=== PATIENT | male | born 1960 | race Caucasian/White ===

== ENCOUNTER 2016-08-29 20:21 | Inpatient (IN) | payer MEDICARE, MEDICAID ==
[2016-08-29] MEDS ORDERED: ZIPRASIDONE 20 MG VIAL IM PRN (22:08)
[2016-08-29] MEDS ORDERED: MAGNESIUM HYDROXIDE 2,400 MG/10 ML CUP PO PRN (22:08)
[2016-08-29] MEDS ORDERED: LORazepam 2 MG/ML SYRINGE IM PRN (22:13)
[2016-08-29] MEDS: NICOTINE 14MG/24HR PATCH TRANSDERM SCH (22:42)
[2016-08-29] MEDS: traZODone HCL 100 MG TAB PO SCH (22:57)
[2016-08-30] MEDS: ACETAMINOPHEN TAB 325 MG TAB PO PRN ×2 (04:54→20:53)
[2016-08-30] MEDS: LORazepam 1 MG TAB PO PRN ×2 (04:54→20:53)
[2016-08-30] MEDS: traZODone HCL 100 MG TAB PO SCH ×2 (06:25→20:49)
[2016-08-30] MEDS: NICOTINE 14MG/24HR PATCH TRANSDERM SCH ×2 (08:35→08:37)
[2016-08-30] MEDS ORDERED: ZIPRASIDONE 20 MG CAP PO SCH (09:00)
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
[2016-08-30] MEDS: HYDROcodone/APAP 7.5-325MG 1 EACH TAB PO PRN (16:37)
[2016-08-30] MEDS: ZIPRASIDONE 20 MG CAP PO SCH (17:30)
[2016-08-30] MEDS: ALBUTEROL INHALER 60 PUFF/8 GM INHALER INHALATION PRN (18:56)
--- NOTE | 2016-08-30 21:57 | HP ---
HISTORY OF PRESENT ILLNESS: This is a 56-year-old male who presented to the emergency department with worsening depression. Patient current is denying chest pain, shortness of breath, nausea, vomiting, abdominal pain, dizziness, ( ) or blurry vision. REVIEW OF SYSTEMS: All 14 systems reviewed and negative except as above. ALLERGIES: PENICILLIN GIVES HIM A RASH. HOME MEDICATIONS: 1. Zetia 10 mg twice daily. 2. Marijuana 2 g daily. SOCIAL HISTORY: The patient smokes 1 to 1-1/2 packs per day, drinks alcohol occasionally. Denied history of drug abuse, but stated that he smokes medical marijuana for his back pain. PAST MEDICAL HISTORY: Chronic back pain, cervical radiculopathy. PAST SURGICAL HISTORY: Laminectomy of L5-S1 and subsequent in her cervical spine. FAMILY HISTORY: Positive for diabetes in his father, mother, brother and sisters. PHYSICAL EXAMINATION: VITAL SIGNS: Reviewed and stable. LUNGS: Clear to auscultation bilaterally. HEART: S1 and S2. HEENT: Atraumatic, normocephalic. PERRLA. NECK: Supple. No masses. No thyromegaly. ABDOMEN: Soft, nontender. Positive bowel sounds in all 4 quadrants. LOWER EXTREMITIES: No edema. PSYCH: Alert and oriented x3. NEURO: No focal deficit. IMAGING AND LABS: Reviewed. ASSESSMENT AND PLAN: 1. Acute depression with anxiety. Medications per your recommendation. 2. Chronic back pain and chronic neck pain. Patient said that when he is off medical marijuana, he is to be on Vicodin or equivalent. I would like to start the patient on [place] 7.5 mg twice daily as needed. 3. Tobacco dependency. The patient counseled regarding smoking cessation and need for him to quit. 4. Bipolar disorder per your recommendation.
[2016-08-31] MEDS: HYDROcodone/APAP 7.5-325MG 1 EACH TAB PO PRN ×2 (05:00→21:07)
[2016-08-31] MEDS: ZIPRASIDONE 20 MG CAP PO SCH ×2 (07:54→17:49)
[2016-08-31] MEDS: LORazepam 1 MG TAB PO PRN ×2 (07:55→16:27)
[2016-08-31] MEDS: NICOTINE 14MG/24HR PATCH TRANSDERM SCH (08:04)
[2016-08-31 09:31] LABS: Basophils % (A) 1 %; CH 32.9; CHCM 33.3; Eosinophils # (A) 0.2 k/uL (0-0.7); Eosinophils % (A) 2 %; HCT 44.4 % (39.0-53.0); HDW 2.31; HGB 14.4 gm/dL (13.0-17.5); Luc # (Auto) 0.13; Luc % (Auto) 2; Lymphocytes # (A) 1.5 k/uL (1.0-4.8); Lymphocytes % (A) 21 %; MCH 32.1 pg (25.0-35.0); MCHC 32.3 g/dL (31.0-37.0); MCV 99.3 fL (80.0-100.0); Mean Platelet Volume 9.9; Monocytes # (A) 0.4 k/uL (0-1.0); Monocytes % (A) 6 %; Neutrophils # (A) 4.9 k/uL (1.3-7.7); Neutrophils % (A) 68 %; RBC 4.48 m/uL (4.30-5.90); RDW 12.4 % (11.5-15.5); WBC 7.2 k/uL (3.8-10.6); WBC (Perox) 7.67
[2016-08-31 09:51] LABS: ALT 53 U/L (21-72); AST 40 U/L (17-59); Alkaline Phosphatase 83 U/L (38-126); Anion Gap 11 mmol/L; Blood Urea Nitrogen 12 mg/dL (9-20); Calcium 9.1 mg/dL (8.4-10.2); Carbon Dioxide 26 mmol/L (22-30); Chloride 106 mmol/L (98-107); Glucose 127 mg/dL (74-99); Non-African American GFR(MDRD) >60 (>60 ml/min/1.73 sqM); Potassium 4.2 mmol/L (3.5-5.1); Sodium 143 mmol/L (137-145); Total Bilirubin 0.3 mg/dL (0.2-1.3); Total Protein 6.6 g/dL (6.3-8.2)
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
[2016-08-31] MEDS: ALBUTEROL INHALER 60 PUFF/8 GM INHALER INHALATION PRN ×3 (13:10→21:22)
[2016-08-31] MEDS: BENZTROPINE MESYLATE 1 MG TAB PO PRN (15:37)
[2016-08-31] MEDS: ACETAMINOPHEN TAB 325 MG TAB PO PRN (16:27)
[2016-09-01] MEDS: LORazepam 1 MG TAB PO PRN ×2 (07:07→23:35)
[2016-09-01] MEDS: NICOTINE 14MG/24HR PATCH TRANSDERM SCH (08:51)
[2016-09-01] MEDS: ZIPRASIDONE 20 MG CAP PO SCH (08:51)
[2016-09-01] MEDS: ALBUTEROL INHALER 60 PUFF/8 GM INHALER INHALATION PRN ×3 (09:36→19:39)
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
[2016-09-01] MEDS: PALIPERIDONE 3 MG TAB.ER.24 PO SCH (12:26)
[2016-09-01] MEDS: HYDROcodone/APAP 7.5-325MG 1 EACH TAB PO PRN ×2 (14:55→21:01)
[2016-09-01] MEDS: ACETAMINOPHEN TAB 325 MG TAB PO PRN ×2 (17:55→23:35)
[2016-09-01] MEDS: BENZTROPINE MESYLATE 1 MG TAB PO PRN (18:54)
[2016-09-01] MEDS ORDERED: ZIPRASIDONE 20 MG CAP PO SCH (21:00)
[2016-09-02] MEDS: ALBUTEROL INHALER 60 PUFF/8 GM INHALER INHALATION PRN ×3 (08:49→17:12)
[2016-09-02] MEDS: NICOTINE 14MG/24HR PATCH TRANSDERM SCH (09:14)
[2016-09-02] MEDS: PALIPERIDONE 3 MG TAB.ER.24 PO SCH (09:14)
[2016-09-02] MEDS: HYDROcodone/APAP 7.5-325MG 1 EACH TAB PO PRN (11:30)
[2016-09-02] MEDS: LORazepam 1 MG TAB PO PRN (11:30)
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
[2016-09-02] MEDS: ACETAMINOPHEN TAB 325 MG TAB PO PRN (22:33)
[2016-09-03] MEDS: HYDROcodone/APAP 7.5-325MG 1 EACH TAB PO PRN ×3 (01:28→21:49)
[2016-09-03] MEDS: LORazepam 1 MG TAB PO PRN ×2 (04:31→21:49)
[2016-09-03] MEDS: NICOTINE 14MG/24HR PATCH TRANSDERM SCH (09:15)
[2016-09-03] MEDS: PALIPERIDONE 3 MG TAB.ER.24 PO SCH (09:16)
[2016-09-03] MEDS: ACETAMINOPHEN TAB 325 MG TAB PO PRN ×2 (09:28→14:42)
[2016-09-03] MEDS: ALBUTEROL INHALER 60 PUFF/8 GM INHALER INHALATION PRN ×3 (09:31→21:21)
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
[2016-09-04] MEDS: BENZTROPINE MESYLATE 1 MG TAB PO PRN (03:59)
[2016-09-04] MEDS: ACETAMINOPHEN TAB 325 MG TAB PO PRN (06:26)
[2016-09-04] MEDS: NICOTINE 14MG/24HR PATCH TRANSDERM SCH (09:09)
[2016-09-04] MEDS: HYDROcodone/APAP 7.5-325MG 1 EACH TAB PO PRN ×2 (09:09→20:53)
[2016-09-04] MEDS: PALIPERIDONE 3 MG TAB.ER.24 PO SCH (09:09)
[2016-09-04] MEDS: ALBUTEROL INHALER 60 PUFF/8 GM INHALER INHALATION PRN ×4 (09:23→21:19)
--- NOTE | 2016-09-04 15:58 | P.PN ---
Progress Note - Text CLINICAL PROBLEMS: He is a 56-year-old male who has a well- established diagnosis of bipolar disorder. He presented to the unit involuntarily with signs and symptoms consistent with janiya. 24 HOUR EVENTS: He received 1 mg of lorazepam at 2149 yesterday for insomnia and restlessness. EXAMINATION: He presented as a casually groomed elderly male wearing multiple layers of clothing. He was pleasant on approach and attended to the interview. He showed no abnormality of psychomotor activity. His gait was normal. He was hyperverbal and demonstrated flight of ideas and clang associations. His affect was elevated but he was not irritable. He denied suicidal ideation or wishes. He denied ideas of reference. He remains angry at his family and expressed a belief that his ex-, son and nmtbwchf-zj-mut are conspiring to steal his Social Security disability and his food stamps. He believes that his Social Security disability payments and food stamps are the reason they want him in the hospital. His thinking was concrete and associations were not coherent or logical. He denied hallucinations and did not appear to be responding to internal stimuli. PERTINENT DATA: He has been compliant with medication and is shown no behavioral dyscontrol. ASSESSMENT: He continues show symptoms of janiya but is much less irritable. PLAN: Increase paliperidone 6 mg by mouth daily, Continue Cogentin 1 mg by mouth twice a day and ziprasidone 20 mg IM twice a day and/or increase Pamelor 1 mg by mouth/IM every 8 hours when necessary for agitation acute agitation. Continue participation in therapeutic groups and activities, evaluate clinical status response to treatment on a daily basis.
[2016-09-05] MEDS: ACETAMINOPHEN TAB 325 MG TAB PO PRN ×2 (06:57→16:06)
[2016-09-05] MEDS: ALBUTEROL INHALER 60 PUFF/8 GM INHALER INHALATION PRN ×4 (08:57→20:46)
[2016-09-05] MEDS: HYDROcodone/APAP 7.5-325MG 1 EACH TAB PO PRN ×2 (09:28→17:10)
[2016-09-05] MEDS: NICOTINE 14MG/24HR PATCH TRANSDERM SCH (09:28)
[2016-09-05] MEDS: PALIPERIDONE 6 MG TAB.ER.24 PO SCH (09:28)
--- NOTE | 2016-09-05 14:12 | P.PN ---
Progress Note - Text CLINICAL PROBLEMS: He was without complaint or concern. He denied side effects to the increased dose of Invega. Therapy staff reported that he is less hyperverbal and less restless during therapeutic groups and activities. 24 HOUR EVENTS: He has participated in therapeutic groups and activities. He posed no management problem and displayed no episodes of behavioral dyscontrol. EXAMINATION: He presented as casually groomed elderly male with long hair and earrings. He was pleasant on approach and maintained eye contact. He appeared to attend to the interview. He had a depressed facial expression. He showed no abnormality of psychomotor activity. Speech was spontaneous with normal rate, rhythm and volume. His speech was not pressured and he displayed no flight of ideas. His affect was depressed but stable and appropriate. He denied suicidal ideation or wishes. He denied ideas of reference and did not express paranoid ideation. His thinking was concrete and associations were coherent and logical. He denied hallucinations did not appear to be responding to internal stimuli. PERTINENT DATA: He is been compliant with prescribed medications. ASSESSMENT: He is much less agitated, labile and angry. He showed a moderate response to treatment and no side effects to the increased dose of the Invega. PLAN: Continue Invega 6 mg by mouth daily and continued discussion to position to long-acting injectable, encourage continued participation in therapeutic groups and activities, evaluate clinical status response to treatment on a daily basis.
[2016-09-05 21:14] LABS: Appearance,Urine Clear (Clear); Bilirubin,Urine Negative (Negative); Glucose,Urine (UA) Negative (Negative); Ketones,Urine Negative (Negative); Leukocyte Esterase,Urine Negative (Negative); Mucus,Urine Rare /hpf; Nitrite,Urine Negative (Negative); Particle Count 1194; Protein,Urine Negative (Negative); RBC,Urine 7 /hpf (0-5); Specific Gravity,Urine 1.019 (1.001-1.035); Squamous Epithelial Cell,Urine <1 /hpf (0-4); UA Billing (MACRO vs. MICRO) MICRO; Urobilinogen,Urine <2.0 mg/dL (<2.0); WBC,Urine 1 /hpf (0-5)
[2016-09-06] MEDS: HYDROcodone/APAP 7.5-325MG 1 EACH TAB PO PRN ×4 (00:39→21:01)
[2016-09-06] MEDS: PALIPERIDONE 6 MG TAB.ER.24 PO SCH (09:01)
[2016-09-06] MEDS: NICOTINE 14MG/24HR PATCH TRANSDERM SCH (09:08)
[2016-09-06] MEDS: ALBUTEROL INHALER 60 PUFF/8 GM INHALER INHALATION PRN ×3 (09:23→21:36)
--- NOTE | 2016-09-06 15:35 | P.PN ---
Progress Note - Text CLINICAL PROBLEMS: He is a 56-year-old male admitted to the psychiatric unit involuntarily (on an ongoing treatment order) with recurrence of a manic psychosis. He is complaining of back pain and requested a prescription of a "stronger" pain medicine than Narco. He stated that he smokes marijuana home to control the pain and "unfortunately" does not have access to marijuana presently. I explained that Narco is the only opiate pain medication is available on the psychiatric unit. He declined my offer for a lidocaine patch. 24 HOUR EVENTS: According to nursing reports she did not sleep last night. The therapist report that his he is much less labile and talkative than on admission but appears depressed. EXAMINATION: He presented as a somewhat disheveled appearing elderly male who was pleasant on approach. He maintained eye contact and attended the interview. Other than multiple tattoos he had no distinguishing features. He had a blunted and depressed facial expression. He was alert and oriented to person, place and time. He did not show abnormality of psychomotor activity. He had a slow but steady gait. His speech was spontaneous with normal rate, rhythm and volume. His affect was depressed but not inappropriate or intense. He denied suicidal ideation or wishes. He denied homicidal ideation. He denied depressive cognitions such as hopelessness, helplessness or worthlessness. He denied obsessive about his ex-, his son and his daughter- in-law. He denied ideas of reference and did not express paranoid ideation. His thinking was concrete but his associations are coherent and logical. He denied hallucinations and did not appear to be responding to internal stimuli PERTINENT DATA: He again declined my recommendation to begin Invega Sustenna. ASSESSMENT: He is much less agitated, irritable and intrusive than on admission. He is not hyperverbal or demonstrating flight of ideas. He appears somewhat depressed but is denying depressive cognitions. PLAN: Continue Invega 6 mg per day, continue to discuss transition to Invega Sustenna, social work will continue to try to arrange a family meeting, continue participation in therapeutic groups and activities, evaluate clinical status response to treatment daily basis.
[2016-09-07] MEDS: LORazepam 1 MG TAB PO PRN (00:02)
[2016-09-07] MEDS: HYDROcodone/APAP 7.5-325MG 1 EACH TAB PO PRN ×3 (07:56→20:06)
[2016-09-07] MEDS: NICOTINE 14MG/24HR PATCH TRANSDERM SCH (07:57)
[2016-09-07] MEDS: PALIPERIDONE 6 MG TAB.ER.24 PO SCH (07:57)
[2016-09-07] MEDS: ALBUTEROL INHALER 60 PUFF/8 GM INHALER INHALATION PRN ×4 (09:59→21:33)
--- NOTE | 2016-09-07 17:02 | P.PN ---
Progress Note - Text CLINICAL PROBLEMS: He is an elderly man who has history of bipolar disorder and noncompliance with medication. He presented to unit with signs and symptoms of acute manic episode. He approached me several times about discharge. He alleged that he is a small dog at home and does not have anyone to assist in the animals care. He became angry when I suggested that we contact his son or [id number]. We discuss transitioning to Invega Sustenna. He was at first reluctant didn't agreed stating that he would take the "shots" until May 2017 when his " court order expires." He refused to restart lithium. 24 HOUR EVENTS: He slept 3 hours last night. He has been compliant with prescribed psychotropic medications. He is posed no management problem and demonstrated no behavioral dyscontrol. EXAMINATION: He presented as a somewhat disheveled appearing 56-year-old man with long hair and earrings. He was pleasant on approach and maintained eye contact. He was distractible. He had a labile facial expression. He was able to sit during the interview. He displayed no abnormal movements. He was hyperverbal. His affect was labile; at times irritable, elevated or depressed. He cried intermittently during the interview. He denied suicidal ideation or wishes. He denied homicidal ideation towards his son and daughter-in- law. He denied depressive cognitions such as hopelessness, helplessness and worthlessness. He denied ideas reference and did not express paranoid ideation. His thinking is concrete and his associations are not coherent or logical. He demonstrated flight of ideas and tangentiality. He did not demonstrate clang associations or neologisms. He denied hallucinations and did not appear to responding to internal stimuli. PERTINENT DATA: He is attending therapeutic groups and activities but the therapist describes him as disorganized, ruminative and restless. licensing worker has been unable to reach his family. ASSESSMENT: He is shown moderate improvement since admission with a decrease in overall level of hyperactivity. He is less irritable but has continued signs and symptoms of janiya. PLAN: Continue paliperidone 6 mg daily. Begin the standard Invega Sustenna titration on 09/08/2016 then discontinue oral paliperidon. Continue participation in therapeutic groups and activities. Evaluate clinical status and response to treatment on a daily basis.
[2016-09-08] MEDS: HYDROcodone/APAP 7.5-325MG 1 EACH TAB PO PRN ×3 (06:49→20:27)
[2016-09-08] MEDS: ALBUTEROL INHALER 60 PUFF/8 GM INHALER INHALATION PRN ×2 (08:00→11:52)
[2016-09-08] MEDS: PALIPERIDONE 6 MG TAB.ER.24 PO SCH (09:50)
[2016-09-08] MEDS: NICOTINE 14MG/24HR PATCH TRANSDERM SCH (09:50)
--- NOTE | 2016-09-08 14:11 | P.PN ---
Progress Note - Text CLINICAL PROBLEMS: He is an elderly man who has history of bipolar disorder and noncompliance with medication. He presented to unit with signs and symptoms of acute manic episode. He is worried about his dog. He allegedly left it at his apartment unsupervised with a large part of a thought food. He is opposed to us contacting his son or [id number] to care for the animal. However he called his landlady and learned that landlady during had been caring for the animal. He remains preoccupied on discharge and is on the impression that he'll be discharged this coming Sunday. I told him that he may be discharged next week but definitely on Sunday. 24 HOUR EVENTS: He slept 4 hours last night. He has been compliant with prescribed psychotropic medications. He is posed no management problem and demonstrated no behavioral dyscontrol. EXAMINATION: He presented as a restless 56-year-old man with long hair and earrings. Akathetic movements were most pronounced when he was standing still. He was pleasant on approach and maintained eye contact. He was distractible. He had a labile facial expression. He was able to sit during the interview. He displayed no abnormal movements. He was hyperverbal. His affect was not labile. He denied suicidal ideation or wishes. He denied homicidal ideation towards his son and [id number]. He denied depressive cognitions such as hopelessness, helplessness and worthlessness. He denied ideas reference and did not express paranoid ideation. His thinking is concrete and his associations are not coherent or logical. He demonstrated flight of ideas and tangentiality. He did not demonstrate clang associations or neologisms. He denied hallucinations and did not appear to responding to internal stimuli. PERTINENT DATA: He is attending therapeutic groups and activities but the therapist describes him as disorganized, ruminative and restless. head loft worker has been unable to reach his family. ASSESSMENT: He is shown moderate improvement since admission with a decrease in overall level of hyperactivity and gradual improvement sleep. He is developed akathisia with the 6 mg dose of paliperidone PLAN: Decrease the paliperidone to 3 mg daily. Hold Invega Sustenna until the akathisia diminishes. Continue participation in therapeutic groups and activities. Evaluate clinical status and response to treatment on a daily basis
[2016-09-08] MEDS: ACETAMINOPHEN TAB 325 MG TAB PO PRN (17:13)
[2016-09-09] MEDS: HYDROcodone/APAP 7.5-325MG 1 EACH TAB PO PRN ×3 (05:23→19:21)
[2016-09-09] MEDS: PALIPERIDONE 3 MG TAB.ER.24 PO SCH (09:12)
[2016-09-09] MEDS: NICOTINE 14MG/24HR PATCH TRANSDERM SCH (09:12)
--- NOTE | 2016-09-09 10:31 | P.PN ---
Progress Note - Text Interval history: The patient is found in the hallway he follows me to an interview room. He is being seen today in coverage for Dr. Avery. The patient presents with a history of bipolar disorder and is obviously manic with symptoms of psychosis. The patient lacks insight into the symptoms. It appears he is being currently managed with invega and the dosage has just been reduced from 6 mg to 3 mg. This was due to concerns related to akathisia. The patient states that he is being held here for no reason and wonders why "you are doing this to me". Numerous times he states he does not have bipolar disorder and does not require any psychiatric medication. Mental status exam: The patient is an alert male. He has long hair he is wearing an earring. He appears to be wearing a women's blouse and his own pants. He has a disheveled appearance. Speech is pressured he is hyperverbal, thought process is tangential he demonstrates loose associations. He appears to have a grandiose thought content and expresses feelings of paranoia and persecution from the clinical staff. Numerous times he challenges me for diagnosing him with bipolar disorder. Insight and judgment are impaired. He demonstrates no verbal or physical aggressiveness. He is able to remain seated in the chair during the interview. Plan: The patient will be continued on the invega as written. Based on today's presentation I would consider adding another mood stabilizer possible. He does state that he does not wish to be on lithium or Depakote again we will address other options. I believe the patient is on a treatment order. We will monitor him for safety and encourage his participation in the milieu. Vital signs reviewed.
[2016-09-09] MEDS: ALBUTEROL INHALER 60 PUFF/8 GM INHALER INHALATION PRN ×2 (15:25→21:14)
[2016-09-10] MEDS: LORazepam 1 MG TAB PO PRN ×3 (00:01→23:15)
[2016-09-10] MEDS: NICOTINE 14MG/24HR PATCH TRANSDERM SCH (08:39)
[2016-09-10] MEDS: PALIPERIDONE 3 MG TAB.ER.24 PO SCH (08:39)
[2016-09-10] MEDS: HYDROcodone/APAP 7.5-325MG 1 EACH TAB PO PRN ×3 (08:41→23:15)
[2016-09-10] MEDS: BENZTROPINE MESYLATE 1 MG TAB PO PRN ×2 (08:44→23:15)
[2016-09-10] MEDS: ALBUTEROL INHALER 60 PUFF/8 GM INHALER INHALATION PRN ×3 (09:26→20:41)
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
[2016-09-10] MEDS: ACETAMINOPHEN TAB 325 MG TAB PO PRN (13:51)
[2016-09-11] MEDS: HYDROcodone/APAP 7.5-325MG 1 EACH TAB PO PRN ×3 (07:50→20:08)
[2016-09-11] MEDS: NICOTINE 14MG/24HR PATCH TRANSDERM SCH (09:25)
[2016-09-11] MEDS: PALIPERIDONE 3 MG TAB.ER.24 PO SCH (09:25)
[2016-09-11] MEDS ORDERED: PALIPERIDONE IM 234 MG/1.5 ML SYG IM STA (11:12)
[2016-09-11] MEDS ORDERED: PALIPERIDONE IM 156 MG/ML SYG IM STA (11:18)
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
[2016-09-11] MEDS: BENZTROPINE MESYLATE 1 MG TAB PO PRN ×2 (14:37→20:08)
[2016-09-11] MEDS: ACETAMINOPHEN TAB 325 MG TAB PO PRN (16:16)
[2016-09-11] MEDS: ALBUTEROL INHALER 60 PUFF/8 GM INHALER INHALATION PRN (20:12)
[2016-09-11] MEDS: MAG HYDROX/AL HYDROX/SIMETH 30 ML CUP PO PRN (22:07)
[2016-09-11] MEDS: LORazepam 1 MG TAB PO PRN (23:59)
[2016-09-12] MEDS: HYDROcodone/APAP 7.5-325MG 1 EACH TAB PO PRN ×4 (01:54→21:15)
[2016-09-12] MEDS: NICOTINE 14MG/24HR PATCH TRANSDERM SCH (08:49)
[2016-09-12] MEDS: PALIPERIDONE 3 MG TAB.ER.24 PO SCH (08:49)
[2016-09-12] MEDS: ALBUTEROL INHALER 60 PUFF/8 GM INHALER INHALATION PRN ×3 (09:22→21:00)
[2016-09-12] MEDS: BENZTROPINE MESYLATE 1 MG TAB PO PRN (10:12)
[2016-09-12] MEDS: MAG HYDROX/AL HYDROX/SIMETH 30 ML CUP PO PRN ×3 (11:12→21:59)
[2016-09-12 11:14] VITALS: BMI 27.3
--- NOTE | 2016-09-12 11:55 | P.PN ---
Progress Note - Text SUBJECTIVE: He stated that he would like to arrange a family meeting with his son and [id number]. He stated that they have reconciled and is no longer angry at them. He denied side effects to the Abilify Sustenna injection but nursing reported that he appears restless and "akathetic". OBJECTIVE: He presented elderly male with long hair and earrings who is dressed in a similar manner to yesterday; wearing a short-sleeved shirt over a longsleeve and shorts over long pants. He maintained eye contact and appeared to attend to interview. He had a blunted but bright facial expression. He appeared restless but not agitated. His speech was spontaneous with slight increase in rate but normal volume and rhythm. His affect was labile but appropriate. He denied suicidal ideation or wishes he denied depressive cognitions such as hopelessness, helplessness and worthlessness. He did not express ideas reference or paranoid ideation. His thinking was concrete and associations appeared coherent and logical. He denied hallucinations and did not appear to responding to internal stimuli. ASSESSMENT: He has some signs and symptoms of hypomania but is much improved from admission. He appears to be having some akathisia from the 156 mg dose of Abilify Sustenna PLAN: Continue oral Abilify until the next systemic injection in 7 days. well service derrick worker to arrange a family meeting where we can obtain some information about his baseline functioning. Change Cogentin dosing from 1 mg twice a day when necessary to regular dosing. Continue participation in therapeutic groups and activities. Evaluate clinical status and response to treatment daily basis. If his family reports that he is at or near his baseline functioning and sconsider discharge prior to the next Sustenna injection.
[2016-09-12] MEDS: BENZTROPINE MESYLATE 1 MG TAB PO SCH (21:14)
[2016-09-12] MEDS: LORazepam 1 MG TAB PO PRN (23:23)
[2016-09-13 06:32] VITALS: BP 123/80; PULSE 91; RESP 20; TEMP 98
[2016-09-13] MEDS: PALIPERIDONE 3 MG TAB.ER.24 PO SCH (09:21)
[2016-09-13] MEDS: BENZTROPINE MESYLATE 1 MG TAB PO SCH (09:21)
[2016-09-13] MEDS: NICOTINE 14MG/24HR PATCH TRANSDERM SCH (09:21)
[2016-09-13] MEDS: HYDROcodone/APAP 7.5-325MG 1 EACH TAB PO PRN (09:23)
[2016-09-13] MEDS: ALBUTEROL INHALER 60 PUFF/8 GM INHALER INHALATION PRN (10:50)
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
== END 2016-09-13 16:37 | disposition home or self-care (01) | DRG 885 ==
LOC: 3MHU 21:24
PROVIDERS: ADMIT Psychiatry & Neurology Psychiatry; ATTEND Psychiatry & Neurology Psychiatry
DX: F31.10 Bipolar disorder, current episode manic without psychotic features, unspecified (principal); G25.71 Drug induced akathisia; F41.9 Anxiety disorder, unspecified; F12.20 Cannabis dependence, uncomplicated; B19.20 Unspecified viral hepatitis C without hepatic coma; F43.10 Post-traumatic stress disorder, unspecified; F90.2 Attention-deficit hyperactivity disorder, combined type; G89.29 Other chronic pain; G47.00 Insomnia, unspecified; M54.12 Radiculopathy, cervical region; M54.9 Dorsalgia, unspecified; F17.210 Nicotine dependence, cigarettes, uncomplicated; F10.10 Alcohol abuse, uncomplicated; Z91.14 Patient's other noncompliance with medication regimen; Z79.899 Other long term (current) drug therapy
CPT/HCPCS: 80053; 80178; 80306; 81001; 84443; 85025; 93005; 94640

== ENCOUNTER 2018-04-10 09:04 | Inpatient (IN) | payer MEDICARE, MEDICAID ==
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
[2018-04-10 10:03] LABS: Amphetamine Screen,Urine Not Detected (NotDetected); Barbiturate Screen,Urine Not Detected (NotDetected); Benzodiazepines Screen,Urine Not Detected (NotDetected); Cocaine Screen,Urine Not Detected (NotDetected); Methadone Screen, Urine Not Detected (NotDetected); Opiate Screen,Urine Not Detected (NotDetected); Oxycodone Screen, Urine Not Detected (NotDetected); Phencyclidine Screen,Urine Not Detected (NotDetected); Tricyclic Antidepressant,Urine Not Detected (NotDetected); Urn Cannabinoid Scrn Detected (NotDetected)
[2018-04-10] MEDS ORDERED: LORazepam 1 MG TAB PO STA (13:27)
[2018-04-10] MEDS ORDERED: MAGNESIUM HYDROXIDE 2,400 MG/10 ML CUP PO PRN (13:59)
[2018-04-10] MEDS ORDERED: MAG HYDROX/AL HYDROX/SIMETH 30 ML CUP PO PRN (13:59)
[2018-04-10] MEDS ORDERED: ZIPRASIDONE 20 MG VIAL IM PRN (13:59)
[2018-04-10] MEDS ORDERED: LORazepam 2 MG/ML INJ IM PRN (14:08)
[2018-04-10] MEDS: ACETAMINOPHEN TAB 325 MG TAB PO PRN (15:05)
--- NOTE | 2018-04-10 15:47 | P.MDCNMH ---
History of Present Illness Chief Complaint: Worsening bipolar and psychotic features 58-year-old male who has past medical history of bipolar disorder with previous admissions to mental health unit who was admitted here due to the worsening symptoms of bipolar disorder restlessness impulsiveness stating to be hearing voices and wanting to purge himself and the pupil in her surrounding. Patient is a very poor historian. Quite difficulties obtaining straightforward thought process and currently her answers from him. His digressive he skips from topic to topic. Generally he states that he does not have much of any medical problems. He does not take any medications except for his bipolar disorder he denied any particular medical conditions like lung problems car problems. Heart attacks strokes or diabetes or kidney problems. Currently he denies any headache vision changes shortness of breath cough chest pain palpitations abdominal pain nausea vomiting denies any weight loss appetite close burning with urination or changes in his stool denies any musculoskeletal pain or any other focal pain or discomfort. Review of Systems REVIEW OF SYSTEMS: CONSTITUTIONAL: No fever or chills HEENT: No changes in vision or voice CARDIOVASCULAR: no chest pain or abnormal heart beats, or any swelling in ankles or feet. RESPIRATORY: No wheezing or coughing. GASTROINTESTINAL: No abdominal pain, no nausea no vomiting no constipation or diarrhea GENITOURINARY: no any urinary urgency, frequency or burning, and there has been no blood in her urine. no flank pain. MUSCULOSKELETAL: notes full range of motion of all her joints without pain or swelling. NEUROLOGICAL: , no headache. no vision changes, or fainting. No numbness or tingling. Skin: Multiple tattoos no rash no cyanosis appear Psychiatric: Awake and alert not visit to establish level of orientation due to the aggressive answers, appears agitated and the moments and anxious Past Medical History Past Medical History: No Reported History History of Any Multi-Drug Resistant Organisms: None Reported Past Surgical History: Orthopedic Surgery Additional Past Surgical History / Comment(s): 2004 broken neck, 2006 back fusion, 2004 acl repair Past Anesthesia/Blood Transfusion Reactions: No Reported Reaction Smoking Status: Current every day smoker Medications and Allergies Home Medications Medication Instructions Recorded Confirmed Type Mirtazapine [Remeron] 15 mg PO HS 04/10/18 04/10/18 History OXcarbazepine [Trileptal] 300 mg PO BID 04/10/18 04/10/18 History Paliperidone [Invega] 6 mg PO DAILY 04/10/18 04/10/18 History Allergies Allergy/AdvReac Type Severity Reaction Status Date / Time Penicillins Allergy Unknown Verified 04/10/18 13:28 Childhood Physical Exam Vitals: Vital Signs Temp Pulse Pulse Resp BP BP Pulse Ox 04/10/18 15:00 97.8 F 77 20 130/92 04/10/18 13:32 98.5 F 75 18 136/90 97 04/10/18 09:07 98.4 F 84 18 131/85 97 Intake and Output 04/10/18 04/10/18 04/10/18 06:59 14:59 22:59 Other: Weight 86.183 kg 74.9 kg Vital Signs: I have reviewed the vital signs. GENERAL: Well-nourished, Well-developed , no apparent distress, cooperative Eyes: PERRL, extraoculry movements intact, clear conjunctiva Head: : Atraumatic external nose and ears, oropharyngeal mucosa is moist without lesions or exudates Neck: Symmetric, trachea midline, No thyromegaly, no masses or neck vain pulsation, no neck rigidity CVS: +S1/S2, No murmurs or gallops. Peripheral pulses 2+ and equal in all extremities. RESP: Unlabored respiratory effort. Clear to auscultation bilaterally. Abdomen: Bowel sounds present in all 4 quadrants, Soft to palpation, Nontender/ Nondistended, No hepatosplenomegaly, no hernias or masses, no CVA tnderness Musculoskeletal: Extremities w/o deformity, No cyanosis or clubbing, no joint swelling Skin: Warm, Dry. No rashes or lesions Neuro: stereoptician II-XII grossly intact, motor strenght 5/5 i upper and lower extremities, no clonus, patellar DTRs 2+ and sympetrical Psych: Awake, Alert, & Oriented (AAO) x3 Appropriate mood and affect Cranial Nerve Examination - Cranial Nerves Cranial Nerve I- Olfactory: Intact Cranial Nerve II- Optic: Intact Cranial Nerve III- Oculomotor: Intact Cranial Nerve IV- Trochlear: Intact Cranial Nerve V- Trigeminal: Intact Cranial Nerve - Abducens: Intact Cranial Nerve VII- Facial: Intact Cranial Nerve VIII- Auditory: Intact Cranial Nerve IX- Glossopharyngeal: Intact Cranial Nerve X- Vagus: Intact Cranial Nerve XI- Accessory: Intact Cranial Nerve XII- Hypoglossal: Intact Results Labs: Abnormal Lab Results - Last 24 Hours (Table) 04/10/18 Range/Units 09:29 U Marijuana (THC) Screen Detected H (NotDetected) Assessment and Plan Plan: 1. Bipolar disorder With decompensation Psychiatry following Admission mental health unit Usual blood work with CBC CMP TSH A1c and lipid panel Denies drinking Denies smoking Reports smoking marijuana Medicine we'll continue to follow
[2018-04-10] MEDS ORDERED: MIRTAZAPINE 15 MG TAB PO SCH (21:00)
[2018-04-10] MEDS: OXcarbazepine 300 MG TAB PO SCH (21:36)
[2018-04-11] MEDS: LORazepam 1 MG TAB PO PRN ×2 (04:45→21:54)
[2018-04-11 07:59] LABS: Basophils # (A) 0.1 k/uL (0-0.2); Basophils % (A) 1 %; Eosinophils # (A) 0.3 k/uL (0-0.7); Eosinophils % (A) 4 %; HCT 41.6 % (39.0-53.0); HGB 13.3 gm/dL (13.0-17.5); Lymphocytes # (A) 1.7 k/uL (1.0-4.8); Lymphocytes % (A) 22 %; MCH 30.8 pg (25.0-35.0); MCV 96.1 fL (80.0-100.0); Mean Platelet Volume 9.6; Monocytes # (A) 0.6 k/uL (0-1.0); Monocytes % (A) 7 %; Neutrophils # (A) 4.9 k/uL (1.3-7.7); Neutrophils % (A) 65 %; Platelet Count 110 k/uL (150-450); RBC 4.32 m/uL (4.30-5.90); RDW 12.5 % (11.5-15.5); WBC 7.6 k/uL (3.8-10.6)
[2018-04-11 08:07] LABS: ALT 34 U/L (21-72); AST 39 U/L (17-59); Albumin 3.6 g/dL (3.5-5.0); Alkaline Phosphatase 76 U/L (38-126); Anion Gap 3 mmol/L; Bilirubin, Delta 0.3 mg/dL (0.0-0.2); Bilirubin,Unconjugated 0.1 mg/dL (0.0-1.1); Blood Urea Nitrogen 15 mg/dL (9-20); Calcium 8.9 mg/dL (8.4-10.2); Carbon Dioxide 29 mmol/L (22-30); Chloride 108 mmol/L (98-107); Cholesterol 121 mg/dL (<200); Glucose 89 mg/dL (74-99); HDL Cholesterol 43 mg/dL (40-60); LDL Cholesterol,Calculated 68 mg/dL (0-99); Potassium 4.2 mmol/L (3.5-5.1); Sodium 140 mmol/L (137-145); Total Bilirubin 0.4 mg/dL (0.2-1.3); Total Protein 6.1 g/dL (6.3-8.2); Triglycerides 51 mg/dL (<150)
[2018-04-11] MEDS: NICOTINE 14MG/24HR PATCH TRANSDERM SCH (10:45)
[2018-04-11] MEDS: OXcarbazepine 300 MG TAB PO SCH ×2 (10:46→20:13)
[2018-04-11] MEDS: PALIPERIDONE 6 MG TAB.ER.24 PO SCH (10:46)
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
[2018-04-11 13:53] LABS: Hemoglobin A1C 5.2 % (4.0-6.0)
[2018-04-11] MEDS: ACETAMINOPHEN TAB 325 MG TAB PO PRN ×2 (16:05→21:54)
[2018-04-12] MEDS: ACETAMINOPHEN TAB 325 MG TAB PO PRN ×3 (02:42→14:27)
[2018-04-12] MEDS: NICOTINE 14MG/24HR PATCH TRANSDERM SCH (08:47)
[2018-04-12] MEDS: PALIPERIDONE 6 MG TAB.ER.24 PO SCH (08:47)
[2018-04-12] MEDS: OXcarbazepine 300 MG TAB PO SCH ×2 (08:47→20:29)
[2018-04-12] MEDS: LORazepam 1 MG TAB PO PRN ×2 (09:21→14:27)
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
[2018-04-13] MEDS: LORazepam 1 MG TAB PO PRN ×2 (02:38→22:03)
[2018-04-13] MEDS: ACETAMINOPHEN TAB 325 MG TAB PO PRN ×4 (02:38→20:17)
[2018-04-13] MEDS: OXcarbazepine 300 MG TAB PO SCH ×2 (08:01→20:09)
[2018-04-13] MEDS: PALIPERIDONE 6 MG TAB.ER.24 PO SCH (08:01)
[2018-04-13] MEDS: NICOTINE 14MG/24HR PATCH TRANSDERM SCH (08:01)
--- NOTE | 2018-04-13 14:59 | P.PN ---
Progress Note - Text Progress Note Date: 04/13/18 Interval history: Patient seen in cross coverage today. He says that he is sleeping better. He is eating well. He does not voice any adverse psychotropic medication side effects. He is attending groups. He relates that he does not have bipolar disorder, he relays he has PTSD. Mental status exam: He is alert and cooperative with the interview. His speech is fluent, not rapid or pressured. He describes his mood is doing very well. He denies any thoughts of harm to self or others. He does not show any agitation. He relates that he doesn't have bipolar disorder, says he has PTSD. Plan: Patient will be maintained on current psychotropic medication regimen. Continue to monitor his ongoing response to treatment monitor for any medication side effects. We'll continue to cover this patient through the weekend.
[2018-04-14] MEDS: ACETAMINOPHEN TAB 325 MG TAB PO PRN ×4 (00:15→22:54)
[2018-04-14] MEDS: OXcarbazepine 300 MG TAB PO SCH ×2 (08:06→20:54)
[2018-04-14] MEDS: PALIPERIDONE 6 MG TAB.ER.24 PO SCH (08:06)
[2018-04-14] MEDS: NICOTINE 14MG/24HR PATCH TRANSDERM SCH (08:06)
--- NOTE | 2018-04-14 12:54 | P.PN ---
Progress Note - Text Progress Note Date: 04/13/18 Interval history: Patient seen in coverage again today. He is seen walking out of his room and relays that he needs to dry his face and hands. He proceeded to dry off with a towel that was on the counter at the nurses station. We discussed him having paper towel available in his restroom. Patient reports that he slept about 5-6 hours last night. He does not seem to voice any adverse psychotropic medication side effects. Mental status exam: He is alert and cooperative with the interview. His speech is fluent, pressured at times. He describes his mood is stable, relays it's been stable as far back as he can remember. He denies any thoughts of harm to self or others. There is a grandiose quality. 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 He does not show any agitation. Plan: Patient be maintained on current psychotropic medication regimen. Continue to monitor for any medication side effects and monitor his ongoing response to treatment.
[2018-04-14] MEDS: LORazepam 1 MG TAB PO PRN (20:54)
[2018-04-15] MEDS: LORazepam 1 MG TAB PO PRN ×3 (02:53→21:36)
[2018-04-15] MEDS: ACETAMINOPHEN TAB 325 MG TAB PO PRN ×5 (02:53→21:35)
[2018-04-15] MEDS: NICOTINE 14MG/24HR PATCH TRANSDERM SCH (08:35)
[2018-04-15] MEDS: PALIPERIDONE 6 MG TAB.ER.24 PO SCH (08:36)
[2018-04-15] MEDS: OXcarbazepine 300 MG TAB PO SCH ×2 (08:36→20:01)
[2018-04-15] MEDS: NICOTINE 21MG/24HR PATCH TRANSDERM SCH (13:03)
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
[2018-04-15 21:23] LABS: Appearance,Urine Clear (Clear); Bilirubin,Urine Negative (Negative); Blood,Urine Small (Negative); Color,Urine Light Yellow; Glucose,Urine (UA) Negative (Negative); Ketones,Urine Negative (Negative); Leukocyte Esterase,Urine Negative (Negative); Nitrite,Urine Negative (Negative); PH, Urine 6.5 (5.0-8.0); Protein,Urine Negative (Negative); RBC,Urine 1 /hpf (0-5); Specific Gravity,Urine 1.004 (1.001-1.035); Urobilinogen,Urine <2.0 mg/dL (<2.0)
[2018-04-16] MEDS: ACETAMINOPHEN TAB 325 MG TAB PO PRN ×5 (02:24→23:49)
[2018-04-16] MEDS: LORazepam 1 MG TAB PO PRN ×2 (06:53→15:50)
[2018-04-16] MEDS: NICOTINE 21MG/24HR PATCH TRANSDERM SCH (09:12)
[2018-04-16] MEDS: OXcarbazepine 300 MG TAB PO SCH ×2 (09:12→20:08)
[2018-04-16] MEDS: PALIPERIDONE 6 MG TAB.ER.24 PO SCH (09:12)
[2018-04-16] MEDS ORDERED: PALIPERIDONE IM 234 MG/1.5 ML SYG IM ONE (11:19)
--- NOTE | 2018-04-16 11:19 | P.PN ---
Progress Note - Text Interval history: The patient is found in the hallway he follows me to an interview room. He states that he met with the district attorney and signed the deferral agreement. He states he will follow doctor's orders but does not agree with the bipolar diagnosis. He states any man-made medications are placebos and he only wishes to take natural things such as marijuana. Despite that believe he states he is willing to comply with a deferral agreement and in fact asks to take the Invega injection so that he does not need to remember to take a pill every day. We discussed the initiation process of Invega Sustenna and his questions were answered. Mental status exam: The patient is alert he has a disheveled appearance his hair is long he is malodorous. He is dressed in his own clothing. He soft- spoken he does have spontaneous speech she is verbose but nonpressured. He describes a variety of delusional thoughts that are often grandiose in nature. 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 He states that he is able to read my or and affect it by words that he says, SANE the numbers 3 and 7. Insight and judgment are impaired. He demonstrates no verbal or physical aggressiveness. He demonstrates mainly a constricted affect. Plan: The patient will continue on the oral Invega we will initiate Invega Sustenna 234 mg IM today. We will continue to monitor him for safety. Social work has contacted the patient's son who plans to apply for guardianship. Vital signs reviewed.
[2018-04-17] MEDS: ACETAMINOPHEN TAB 325 MG TAB PO PRN ×3 (04:21→15:30)
[2018-04-17] MEDS: PALIPERIDONE 6 MG TAB.ER.24 PO SCH (08:50)
[2018-04-17] MEDS: NICOTINE 21MG/24HR PATCH TRANSDERM SCH (08:50)
[2018-04-17] MEDS: OXcarbazepine 300 MG TAB PO SCH ×2 (08:50→20:05)
[2018-04-17] MEDS: LORazepam 1 MG TAB PO PRN ×2 (08:51→20:06)
--- NOTE | 2018-04-17 10:50 | P.PN ---
Progress Note - Text Interval history: The patient is found in the hallway he follows me to an interview room. The patient describes feeling agitated this morning as the phone was turned off while he was having a discussion. Despite being warned twice that the phones were going to be turned off he feels it was wrong a staff to do that. He spent most of the session discussing this issue. He states that he slept 5 hours last night appetite is stable. He continues to assert that he does not have a bipolar disorder but is willing to comply with recommendations. Mental status exam: The patient is alert he is dressed in his own clothing he is wearing 2 shirts. Eye contact is appropriate. He has spontaneous pressured speech. He demonstrates tangential thinking and loose associations. He reports some paranoid thinking and persecutory thinking. Insight and judgment are limited. He is reporting no suicidal or homicidal thoughts. He is endorsing no hallucinations. He has a more irritable affect today compared to yesterday. Plan: The patient continues to demonstrate symptoms of janiya and psychosis. He did receive the invega systemic injection yesterday. We'll continue his medications as written. We will monitor him for safety and encourage full participation in the milieu. Vital signs reviewed.
[2018-04-18] MEDS: ACETAMINOPHEN TAB 325 MG TAB PO PRN ×4 (00:59→20:17)
[2018-04-18] MEDS: LORazepam 1 MG TAB PO PRN ×3 (06:26→22:30)
[2018-04-18] MEDS: PALIPERIDONE 6 MG TAB.ER.24 PO SCH (08:43)
[2018-04-18] MEDS: OXcarbazepine 300 MG TAB PO SCH ×2 (08:43→20:16)
[2018-04-18] MEDS: NICOTINE 21MG/24HR PATCH TRANSDERM SCH (08:43)
--- NOTE | 2018-04-18 09:39 | P.PN ---
Progress Note - Text Interval history: The patient is found in the hallway he follows me to an interview room. He reports his mood is good but he is frustrated that he is here. He states he is not bipolar and does not understand why he keeps getting court ordered for treatment over the years. We reviewed his psychotropic medications. His questions were answered. Mental status exam: The patient is alert he is dressed in his own clothing. He has long hair he wears and echavarria. He has numerous visible tattoos on his extremities. He is malodorous despite the report that he is showering and washing his clothes. He has spontaneous speech. At first during this session his speech was nonpressured but as the session progressed he became more verbose and pressured. He became more animated during his speech and was physically demonstrative although he demonstrated no aggressive behavior. He does demonstrate tangential thinking and loose associations. He demonstrates grandiose thinking in the context of mosque preoccupation. 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 He states that he read the books to no those roles. Insight and judgment impaired. He denies having any thoughts of harming himself or others. He is endorsing no hallucinations. Plan: The patient continues to demonstrate symptoms of janiya and psychosis. He is not yet due for the second dose of Invega Sustenna and we plan to give that here in the hospital prior to his discharge. I will draw a Trileptal level tomorrow morning. This was essentially 0 upon admission. Vital signs reviewed they're within normal limits. We will monitor him for safety and encourage participation in the milieu.
[2018-04-19] MEDS: ACETAMINOPHEN TAB 325 MG TAB PO PRN ×5 (00:30→20:00)
[2018-04-19] MEDS: LORazepam 1 MG TAB PO PRN ×2 (05:21→16:20)
[2018-04-19] MEDS: NICOTINE 21MG/24HR PATCH TRANSDERM SCH (09:04)
[2018-04-19] MEDS: OXcarbazepine 300 MG TAB PO SCH ×2 (09:05→20:00)
[2018-04-19] MEDS: PALIPERIDONE 6 MG TAB.ER.24 PO SCH (09:05)
--- NOTE | 2018-04-19 11:45 | P.PN ---
Progress Note - Text Interval history: The patient is found in the hallway he follows me to an interview room. He continues to have some difficulty with sleep at night staff report that he can be irritable at times. He needs to demonstrate some pressured speech. He states numerous times is not bipolar. 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 Although he does not agree with the hospitalization or are diagnosis he is willing to comply with treatment. Mental status exam: The patient is a male appearing his stated age he has long hair and he is wearing that in a ponytail today. He is dressed in his own clothing wearing 2 layers. He continues to be malodorous. Speech is fluent spontaneous pressured. He does briefly follow direction and then he becomes tangential again and demonstrates loose associations flight of ideas. He continues to demonstrate grandiose thinking some of which is hinduism in nature area insight and judgment remain impaired. He demonstrates no verbal or physical aggressiveness. He demonstrates no abnormal involuntary movements. He reports no suicidal or homicidal ideation intent or plan. Plan: The patient will continue on his current psychotropic medications. He will be due for the second Invega Sustenna injection Sunday. We are awaiting the results of the Trileptal level as we will consider titrating that medication further. He continues to demonstrate symptoms of janiya and psychosis and requires continued hospitalization. We would expect him to be unsafe and decompensate if discharged at this time. Vital signs reviewed.
[2018-04-19 18:25] LABS: Hepatitis A Antibody IgM Non-Reactive (Non-Reactive); Hepatitis B Core IgM Non-Reactive (Non-Reactive)
[2018-04-20] MEDS: ACETAMINOPHEN TAB 325 MG TAB PO PRN ×3 (01:51→23:58)
[2018-04-20] MEDS: LORazepam 1 MG TAB PO PRN ×3 (01:52→23:58)
[2018-04-20] MEDS: PALIPERIDONE 6 MG TAB.ER.24 PO SCH (08:33)
[2018-04-20] MEDS: OXcarbazepine 300 MG TAB PO SCH ×2 (08:33→20:04)
[2018-04-20] MEDS: NICOTINE 21MG/24HR PATCH TRANSDERM SCH (08:33)
--- NOTE | 2018-04-20 11:10 | P.PN ---
Progress Note - Text Progress Note Date: 04/20/18 Interval History: Patient is a 58-year-old male who is being seen in coverage for Dr. Brady. Patient presents and states that he is sleeping and attending only groups that don't teach him anxiety or disease. Patient states that he eating well and states he has no side effects from the medication. Patient had no complaints at this time. Mental Status: Appearance/Attitude: Patient is dressed in layers of clothing, makes intermittent eye contact and is cooperative. Behavior: Patient does not display any psychomotor agitation or retardation. Speech/Language: Patient's speech is pressured, he is coherent Thought Process: Patient initially began the interview was goal-directed responses longer the interview progresses the patient becomes more tangential Thought Content: Patient denies any auditory or visual hallucinations and continues to exhibit delusional ideation, the longer the interview progresses the more disorganized he becomes. 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 Patient states he slept well last night and his appetite is good. Suicidal/Homicidal Ideation: Patient denies any current suicidal or homicidal ideation. Sensorium/Cognition: Patient is alert and oriented to person, place, time Mood/Affect: Patient's mood is expansive his affect is appropriate to his mood Insight/Judgment: Patient's insight and judgment are fair Assessment: Patient was seen today was dressed in layers of clothing, his speech is pressured patient states he sleeping hours document the patient is only sleeping 4 hours a night. Patient is attending some groups or activities and continues to express delusional ideation. Patient is also taking his medications and reported no side effects from them. Plan: Patient continues on Invega 6 mg daily, Trileptal 3 mg twice a day and is due for his next long-acting injection of Invega on Sunday. Patient continues to require hospitalization to further target his mood disorder and psychotic symptoms.
[2018-04-21] MEDS: ACETAMINOPHEN TAB 325 MG TAB PO PRN ×4 (05:04→23:41)
[2018-04-21] MEDS: PALIPERIDONE 6 MG TAB.ER.24 PO SCH (08:48)
[2018-04-21] MEDS: NICOTINE 21MG/24HR PATCH TRANSDERM SCH ×2 (08:48→16:26)
[2018-04-21] MEDS: OXcarbazepine 300 MG TAB PO SCH ×2 (08:48→20:10)
[2018-04-21] MEDS: LORazepam 1 MG TAB PO PRN ×3 (08:49→23:41)
--- NOTE | 2018-04-21 11:40 | P.PN ---
Progress Note - Text Progress Note Date: 04/21/18 Interval History: Patient is a 58-year-old male seen in coverage for Dr. Brady. Patient states that he is doing fine but complains of pain and wanted to know if he could have Vicodin or Lortabs. Patient states that he sleeping and eating well, states he slept for about 5 hours last night. Patient reports that he is not hearing voices and has been attending groups and activities. He denied any paranoid ideation. 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 Patient had no other concerns at this time other than that he wondered if he needed to continue taking Trileptal. Mental Status: Appearance/Attitude: Patient is dressed in layers of clothing, makes eye contact and is cooperative. Behavior: Patient does not exhibit any psychomotor agitation or retardation. Speech/Language: Patient's speech is spontaneous of normal volume and rhythm and becomes slightly pressured Thought Process: Patient is goal-directed initially becomes more tangential the longer the interview goes on Thought Content: Patient denies auditory or visual hallucinations and no paranoid delusions are elicited. 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 Patient states he slept about 5 hours last night it's documented that he slept for 4. Patient reports he is attending groups and activities. Suicidal/Homicidal Ideation: Denies any suicidal or homicidal ideation at this time Sensorium/Cognition: Patient is alert and oriented to person, place, and time Mood/Affect: Patient's mood is stable and his affect is slightly blunted Insight/Judgment: Patient's insight and judgment are fair Assessment: patient was requesting pain medication today stating that the Tylenol is not sufficient. He also wondered if he would need to continue taking Trileptal once he had the injections of Invega. Patient's been sleeping about 4 hours a night. Patient is seen pacing in the hallway interacting with multiple other peers. Patient states he's attending groups or activities. 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 Plan: patient continues on Invega 6 mg daily and Trileptal 300 mg twice a day and will receive his second injection of long-acting Invega tomorrow. Patient continues to require hospitalization to stabilize his mood.
[2018-04-22] MEDS: ACETAMINOPHEN TAB 325 MG TAB PO PRN ×4 (05:37→21:29)
[2018-04-22] MEDS ORDERED: PALIPERIDONE IM 156 MG/ML SYG IM ONE (08:54)
--- NOTE | 2018-04-22 09:02 | P.PN ---
Progress Note - Text Interval history: The patient is found in the hallway he follows me to an interview room. He approaches me and requests to speak. He states he is ready for his second invega injection. We discussed that medication again his questions were answered. The Trileptal level is not yet available. He states that he has read all of the chemistry books and discusses a variety of nonrelevant topics. Mental status exam: The patient's pleasant he is directable he has spontaneous pressured speech. He continues to spontaneously describes several grandiose thoughts. He is demonstrative with speech and makes several hand gestures while he speaks but nothing consistent with a conventional form of communication. Thought process is tangential he demonstrates loose associations. He demonstrates no verbal or physical aggressiveness he demonstrates no abnormal involuntary movements. He denies having any suicidal or homicidal thoughts. Insight and judgment remains quite limited. Plan: The patient will continue on his current medication we will give him the next dose of Invega Sustenna 156 mg IM, we are awaiting a Trileptal level. We will continue to monitor him for safety and encourage appropriate participation in the milieu. Vital signs reviewed.
[2018-04-22] MEDS: OXcarbazepine 300 MG TAB PO SCH ×2 (09:16→20:41)
[2018-04-22] MEDS: LORazepam 1 MG TAB PO PRN ×2 (09:16→21:29)
[2018-04-22] MEDS: NICOTINE 21MG/24HR PATCH TRANSDERM SCH (09:16)
[2018-04-22] MEDS: PALIPERIDONE 6 MG TAB.ER.24 PO SCH (09:16)
[2018-04-22 13:25] VITALS: BMI 26.0
[2018-04-23] MEDS: ACETAMINOPHEN TAB 325 MG TAB PO PRN ×3 (02:58→14:57)
[2018-04-23] MEDS: PALIPERIDONE 6 MG TAB.ER.24 PO SCH (09:04)
[2018-04-23] MEDS: NICOTINE 21MG/24HR PATCH TRANSDERM SCH (09:04)
[2018-04-23] MEDS: OXcarbazepine 300 MG TAB PO SCH (09:04)
[2018-04-23] MEDS: LORazepam 1 MG TAB PO PRN ×2 (11:01→20:28)
--- NOTE | 2018-04-23 11:39 | P.PN ---
Progress Note - Text Interval history: The patient is found in the hallway ambulating he follows me to an interview room. He states that his mood is wonderful. He was observed singing out loud prior to us speaking. Staff report that the patient has been demonstrating a very labile affect. He has demonstrated laughter and crying older and a short period of time. The Trileptal level finally came back which was subtherapeutic at 1.8. In discussing this with the patient he admits to cheeking the medicine and not taking it except for 2 doses prior to the blood test. We reviewed the purpose of the medication. He described concerns he had with Trileptal as an outpatient. We discussed alternatives such as Depakote. Mental status exam: The patient is alert he continues to display symptoms of janiya and psychosis. He reports grandiose thoughts hinduism preoccupation. He demonstrates a disorganized thought process including flight of ideas. He is somewhat pressured in speech. He can be briefly redirected. He is cooperative he demonstrates no agitated or aggressive behavior during our session. Insight and judgment are impaired. He continues to ask me to remove the bipolar diagnosis from his chart. He reports no suicidal or homicidal thoughts. It appears he has been showering. Grooming is adequate. Plan: The patient will continue on his current psychotropic medications we will discontinue the Trileptal and initiate Depakote ER 1000 mg at bedtime. We will monitor for cheeking behavior. He is encouraged to appropriately participate in the milieu we will monitor him for safety. We will monitor vital signs. He requires continued hospitalization for his symptoms of janiya and psychosis.
[2018-04-23] MEDS ORDERED: DIVALPROEX ER 500 MG TAB.ER.24H PO SCH (21:00)
[2018-04-24] MEDS: PALIPERIDONE 6 MG TAB.ER.24 PO SCH (07:58)
[2018-04-24] MEDS: NICOTINE 21MG/24HR PATCH TRANSDERM SCH (07:58)
[2018-04-24] MEDS: LORazepam 1 MG TAB PO PRN ×2 (08:48→22:13)
[2018-04-24] MEDS: ACETAMINOPHEN TAB 325 MG TAB PO PRN ×2 (08:49→20:02)
--- NOTE | 2018-04-24 11:11 | P.PN ---
Progress Note - Text Interval history: The patient is found in group he follows me to an interview room. The patient's states his mood is good. He does quickly go into a request that I remove the bipolar diagnosis from his chart. We discussed his diagnosis in some detail. He becomes upset with this topic but was not threatening or aggressive. He continues to demonstrate symptoms of janiya and psychosis. Staff report that he was less intrusive in group today. We discussed the recent addition of the Depakote. He is requesting that we use a smaller pill of possible and we will see if pharmacy can provide that. Mental status exam: The patient is alert he seated in his chair. He has his hair braided. He is dressed in his own clothing. Eye contact is appropriate speech is fluent spontaneous pressured he is verbose. 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 He indicates that he accomplishes more in 5 minutes than I do all day. He ventilates feelings of frustration regarding the hospitalization. Insight and judgment impaired. He continues to demonstrate symptoms of janiya and psychosis. Delusional thoughts are mainly grandiose in nature today. He does describe some persecutory thinking. He demonstrates no abnormal involuntary movements. Affect is labile. Plan: The patient will continue his current medication, I am able to discontinue the oral invega at this time now that he has received both injections of Invega Sustenna. We will continue the Depakote ER and see if pharmacy is able to provide the 250 mg tablets to equal to 1000 mg dose at bedtime. Alternatively we could use the Depakene liquid if necessary. We will continue to monitor him for safety he is encouraged to appropriately participate in the milieu. Vital signs reviewed.
[2018-04-24] MEDS: DIVALPROEX ER 250 MG TAB.ER.24H PO SCH (20:01)
[2018-04-25] MEDS: ACETAMINOPHEN TAB 325 MG TAB PO PRN (05:15)
[2018-04-25] MEDS: NICOTINE 21MG/24HR PATCH TRANSDERM SCH (09:00)
[2018-04-25] MEDS: LORazepam 1 MG TAB PO PRN ×2 (09:01→16:45)
--- NOTE | 2018-04-25 10:12 | P.PN ---
Progress Note - Text Interval history: The patient is found in group he follows me to an interview room. He reports his mood is stable. Staff reported that he slept 6 hours last evening. He has been eating. He reports compliance with the Depakote. His questions regarding the medication were answered. Vital signs reviewed. He continues to speak on a variety of topics several are still delusional. He states that titanium was grafted to his bones. 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 Mental status exam: The patient is alert he is dressed in his own clothing he seated calmly. He is pleasant and cooperative. Speech is spontaneous pressured he is verbose. He continues to demonstrate tangential thinking and loose associations. Insight into his symptoms is quite limited. He reports no suicidal or homicidal ideation. He endorses no hallucinations. He continues to have grandiose thinking some persecutory thinking and jain preoccupation. Affect is expansive. He demonstrates no verbal or physical aggressiveness. He demonstrates no abnormal involuntary movements. Plan: The patient will continue on his current medication. We are allowing the invega and the Depakote time to demonstrate efficacy. We will plan to draw the Depakote level Sunday morning area he requires continued hospitalization due to his symptoms of janiya and psychosis. We are aware that he does have symptoms at baseline but we are hoping to improve the severity of manic symptoms prior to discharge. We will continue to monitor for safety.
[2018-04-25] MEDS: IBUPROFEN 600 MG TAB PO PRN (14:16)
[2018-04-25] MEDS: DIVALPROEX ER 250 MG TAB.ER.24H PO SCH (20:54)
[2018-04-26] MEDS: IBUPROFEN 600 MG TAB PO PRN ×3 (00:09→21:04)
[2018-04-26] MEDS: LORazepam 1 MG TAB PO PRN ×3 (00:09→21:04)
[2018-04-26] MEDS: NICOTINE 21MG/24HR PATCH TRANSDERM SCH (09:18)
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
[2018-04-26] MEDS: DIVALPROEX ER 250 MG TAB.ER.24H PO SCH (21:02)
[2018-04-27 06:38] VITALS: RESP 18
[2018-04-27] MEDS: LORazepam 1 MG TAB PO PRN ×2 (08:50→17:57)
[2018-04-27] MEDS: IBUPROFEN 600 MG TAB PO PRN ×2 (08:50→17:57)
[2018-04-27] MEDS: NICOTINE 21MG/24HR PATCH TRANSDERM SCH (08:50)
[2018-04-27] MEDS: ACETAMINOPHEN TAB 325 MG TAB PO PRN (14:04)
[2018-04-27] MEDS: DIVALPROEX ER 250 MG TAB.ER.24H PO SCH (20:45)
--- NOTE | 2018-04-27 21:06 | P.PN ---
Progress Note - Text Progress Note Date: 04/27/18 IDENTIFICATION DATA 58-year-old male with history of bipolar disorder admitted to the mental health unit on a petition for acute symptoms of psychosis. INTERVAL HISTORY: He is grandiose, delusional, Stated he is nick . He reports talking to his cat. His speech is pressured with flight of ideas. He states his main problems are PTSD AND ADHD and everything else is a lie. He stated for the past 15 years he has been saying the same things but no one believes him. He reports he is going to [place] every one so he can regain everything he had lost. MENTAL STATUS EXAMINATION: Patient is 58 year old man appears in fair marginal grooming and hygiene. His speech and thought process are pressured with flight of ideas. mood is elated and affect appropriate. he denies auditory or visual hallucinations. denies paranoia. He is alert and oriented X 4. His insight and judgment are limited. He denies current suicidal or homicidal ideations. ASSESSMENT AND PLAN: Continue current treatment.
[2018-04-28] MEDS: IBUPROFEN 600 MG TAB PO PRN ×3 (06:46→20:31)
[2018-04-28] MEDS: LORazepam 1 MG TAB PO PRN ×3 (06:46→20:31)
[2018-04-28] MEDS: NICOTINE 21MG/24HR PATCH TRANSDERM SCH (08:34)
[2018-04-28] MEDS: ACETAMINOPHEN TAB 325 MG TAB PO PRN (18:55)
--- NOTE | 2018-04-28 18:57 | P.PN ---
Progress Note - Text Progress Note Date: 04/28/18 IDENTIFICATION DATA 58-year-old male with history of bipolar disorder admitted to the mental health unit on a petition for acute symptoms of psychosis. INTERVAL HISTORY: He does not think he needs medications but takes them. He stated every thing that is said about him is a lie. He did not talk much today. he reports good sleep and appetite. He denies most of the symptoms. He denies current symptoms of psychosis, janiya or depression. He reports going to all his groups. No behavioral problems reported. MENTAL STATUS EXAMINATION: Patient is 58 year old man appears in fair grooming and hygiene. His speech and thought process are purposefully limited and stated I told you every thing yesterday. mood is euthymic and affect appropriate. he denies auditory or visual hallucinations. denies paranoia. He is alert and oriented X 4. His insight and judgment are limited. He denies current suicidal or homicidal ideations. ASSESSMENT AND PLAN: Continue current treatment.
[2018-04-28] MEDS: DIVALPROEX ER 250 MG TAB.ER.24H PO SCH (20:28)
[2018-04-29] MEDS: ACETAMINOPHEN TAB 325 MG TAB PO PRN ×2 (04:18→09:05)
[2018-04-29] MEDS: LORazepam 1 MG TAB PO PRN ×3 (04:18→21:54)
[2018-04-29] MEDS: IBUPROFEN 600 MG TAB PO PRN ×3 (04:18→21:54)
[2018-04-29 07:04] VITALS: TEMP 97.5
[2018-04-29] MEDS: NICOTINE 21MG/24HR PATCH TRANSDERM SCH (09:02)
[2018-04-29 09:23] LABS: Valproic Acid (Depakene) 67.5 ug/mL
--- NOTE | 2018-04-29 09:27 | P.PN ---
Progress Note - Text Interval history: The patient is found in the hallway he follows me to an interview room. He reports that his mood is good. He does feel tired as he didn't sleep well last night. He's been compliant with his medication. Depakote level was drawn this morning. That value is not yet available but his ever enzymes are within normal limits. He has been attending groups. Staff report that he is appearing less manic. Mental status exam: The patient is an alert male appearing his stated age. He is dressed in his own clothing. He is wearing 2-3 shirts and is wearing shorts over his jeans. Eye contact is appropriate. Speech is much less pressured he maintains a constricted affect. His thought process is more linear today he demonstrates no tangential thinking loose associations or flight of ideas. He denies having auditory or visual hallucinations. He does have residual grandiose thinking. Insight and judgment improving. He demonstrates no verbal or physical aggressiveness he demonstrates no abnormal involuntary movements. Plan: The patient will continue on his current medication. We will await the results of the Depakote level. He may be appropriate for discharge in the next 1-2 days. Vital signs reviewed.
[2018-04-29] MEDS: DIVALPROEX ER 250 MG TAB.ER.24H PO SCH (20:01)
[2018-04-30] MEDS: IBUPROFEN 600 MG TAB PO PRN (05:28)
[2018-04-30] MEDS: LORazepam 1 MG TAB PO PRN (05:28)
[2018-04-30 05:31] VITALS: BP 113/80; PULSE 69
[2018-04-30] MEDS: ACETAMINOPHEN TAB 325 MG TAB PO PRN (06:31)
[2018-04-30] MEDS: NICOTINE 21MG/24HR PATCH TRANSDERM SCH (09:06)
--- NOTE | 2018-04-30 10:00 | P.DS ---
Providers Date of admission: 04/10/18 13:30 Expected date of discharge: 04/30/18 Attending physician: Reid Brady Primary care physician: Physician Nonstaff - Discharge Diagnosis(es) (1) Bipolar disorder, current episode manic severe with psychotic features Current Visit: Yes Status: Acute Priority: High (2) Cannabis use disorder, moderate, dependence Current Visit: Yes Status: Acute Priority: Medium (3) Alcohol use disorder Current Visit: Yes Status: Acute Priority: Low Hospital Course: Brief summary of admission note: This patient is a 58-year-old male who was admitted to the mental health unit on a petition for acute symptoms of psychosis and janiya. He was brought in by the police as he was making bizarre statements and demonstrated disorganized thinking. He states prior to the admission he was in the [place] for 3 days. He reported that he came here to save his family from cannibalism any needs to stop the zombies. 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 For full detail please refer to my psychiatric evaluation dated 2017. Summary of hospital course: The patient was admitted to the mental health unit on a petition and clinical certificate. He did meet with his health care attorney and decided to sign a deferral treatment agreement at the deferral conference. We reviewed the patient's presenting symptoms and medication options. He was initially resistant to the idea of being on medication but was quickly cooperative. Invega Sustenna was initiated 234 mg IM. Approximately one week later he was given the invega at 156 mg injection. He was continued on Trileptal which she had been on in the past. The medication was demonstrating no benefit and we learned that he was not compliant with it and he later admitted to cheeking the medication. We did switch the Depakote to try to stabilize his manic symptoms more quickly and that was effective. His liver enzymes are within normal limits and his Depakote level as of yesterday was 67.5. The patient continues to have a delusional thought content which I suspect is chronic. His symptoms of janiya have improved significantly however. He is endorsing no thoughts of harming himself or others. He has been attending groups appropriately and has been much more directable during the day on the mental health unit. He is aware that his son is trying to obtain guardianship and the patient is agreeable at least to a temporary guardianship scenario. Mental status exam: The patient is alert he is dressed in his own clothing. Hygiene grooming are adequate. Speech is fluent spontaneous much less pressured. Thought process can still become tangential at times but he demonstrates no loose associations or flight of ideas. He continues to have grandiose thinking he is reporting much less paranoid thinking. His symptoms of janiya have improved significantly. He demonstrates no verbal or physical aggressiveness he demonstrates no abnormal involuntary movements. Insight and judgment improved during the course of the hospitalization. He is oriented to person place and date. He reports no hopelessness thinking and reports no suicidal or homicidal ideation intent or plan. Affect is constricted today Impressions 1. Bipolar 1 disorder most recent manic with psychosis, rule out schizoaffective disorder bipolar type, cannabis use disorder, alcohol use disorder 2. Previously reported medical comorbidities including hepatitis C history of cervical fracture history of ACL tear Plan: The patient's will be discharged from mental health unit today. He will continue following up with [facility]. He is on a treatment deferral agreement. He received his second dose of Invega Sustenna on 2017. That was the 156 mg dose. He will be due for the 117 mg dose approximately 4 weeks from that injection. He'll continue on Depakote ER 1000 mg at bedtime. He is advised to abstain from any use of alcohol or marijuana or illicit drugs. He does not wish to attend inpatient chemical dependency treatment. This will need to be addressed further as an outpatient. There is no imminent safety risk he has stabilized to a point where he is safe for transition to outpatient care. He is instructed to return to the hospital for any acute safety concerns. Patient Condition at Discharge: Stable Plan - Discharge Summary Discharge Rx Participant: No New Discharge Prescriptions: New Divalproex ER [Depakote ER] 1,000 mg PO HS #60 tab.er.24h Nicotine 21Mg/24Hr Patch [Habitrol] 1 patch TRANSDERM DAILY #10 patch Paliperidone Palmitate [Invega Sustenna] 117 mg IM ONCE #1 syringe Discontinued Paliperidone [Invega] 6 mg PO DAILY OXcarbazepine [Trileptal] 300 mg PO BID Mirtazapine [Remeron] 15 mg PO HS Discharge Medication List Divalproex ER [Depakote ER] 1,000 mg PO HS #60 tab.er.24h 04/30/18 [Rx] Nicotine 21Mg/24Hr Patch [Habitrol] 1 patch TRANSDERM DAILY #10 patch 04/30/18 [ Rx] Paliperidone Palmitate [Invega Sustenna] 117 mg IM ONCE #1 syringe 04/30/18 [Rx] Follow up Appointment(s)/Referral(s): [facility] [NON-STAFF] - 1 Week Patient Instructions/Handouts: How to Stop Smoking (GEN) Activity/Diet/Wound Care/Special Instructions: Do not use any street drugs or alcohol. Do not have access to any guns or weapons. Keep your follow up appointments as scheduled. Continue medications as prescribed. If you have any problems call the crisis line at or [phone] in case of emergency.
== END 2018-04-30 14:45 | disposition home or self-care (01) | DRG 885 ==
LOC: EC 09:04 → 3MHU 13:30
PROVIDERS: ADMIT Psychiatry & Neurology Psychiatry; ATTEND Psychiatry & Neurology Psychiatry
DX: F31.2 Bipolar disorder, current episode manic severe with psychotic features (principal); B19.20 Unspecified viral hepatitis C without hepatic coma; F12.20 Cannabis dependence, uncomplicated; F17.200 Nicotine dependence, unspecified, uncomplicated; F43.10 Post-traumatic stress disorder, unspecified; F90.9 Attention-deficit hyperactivity disorder, unspecified type; Z79.899 Other long term (current) drug therapy; Z72.89 Other problems related to lifestyle; Z88.0 Allergy status to penicillin; Z63.9 Problem related to primary support group, unspecified; Z81.8 Family history of other mental and behavioral disorders
CPT/HCPCS: 80053; 80061; 80074; 80164; 80183; 80306; 81001; 82075; 82248; 83036; 84443; 84450; 84460; 85025; 99285